=== PATIENT | male | born 1950 | race Caucasian/White ===

== ENCOUNTER 2024-06-09 07:02 | Day surgery (SDC) | payer OTHER ==
[2024-06-09] VITALS (9 sets, daily range): BP systolic 122–137; BP diastolic 63–77; PULSE 77–86; RESP 13–18; TEMP 97.2–98.1
[~2024-06-09 07:02] MED LIST: APIX5TAB PO; ATOR20TA65 PO; CHOL200013 PO; CLIN-141 PO; CLOP75TA32 PO; EVOL140S2 SQ; FOLI1 PO; HYDR25TA PO; LEVE500T19 PO; METO-408 PO; OMEP40CA21 PO; VENL150T3 PO
[2024-06-09 07:56] LABS: CREATININE 1.5 mg/dL (0.5-1.3); POTASSIUM 3.8 mmol/L (3.5-5.1)
[2024-06-09] MEDS: 0.9%NACL 1000ML 1,000 ML IV SCH (08:00)
[2024-06-09] MEDS ORDERED: IODIXANOL 320 MG/ML 100 ML VIAL ONE (11:21)
[2024-06-09] MEDS ORDERED: NITROGLYCERIN 50MG VIAL ONE (11:21)
[2024-06-09] MEDS ORDERED: HEParin-NS 1,000 UNIT/500 ML 1,000 ML IV ONE (11:21)
[2024-06-09] MEDS ORDERED: LIDOCAINE HCL 400MG/20ML VIAL ONE (11:21)
[2024-06-09] MEDS ORDERED: HEParin 10,000 UNIT/10ML (1,000 UNIT/ML) VIAL ONE (11:21)
[2024-06-09] MEDS ORDERED: HEParin-NS 1,000 UNIT/500 ML 500 ML IV ONE (12:38)
[2024-06-09] MEDS ORDERED: MIDAZOLAM HCL 1 MG/ML 2ML VIAL ONE ×2 (12:58→13:13)
[2024-06-09] MEDS ORDERED: FENTanyl CITRate PF 50 MCG/1 ML 2ML VIAL ONE ×2 (12:58→13:29)
[2024-06-09] MEDS ORDERED: cloPIDOgrel 300MG TAB ONE (13:31)
[2024-06-09] MEDS ORDERED: 0.9%NACL 1000ML 1,000 ML IV SCH (14:30)
--- NOTE | 2024-06-09 14:51 | PRN ---
Procedure:Peripheral Angiogram Procedure Note Procedure Note: Peripheral Angiogram Date of Service: 06/09/2024 Referring Physician: Dr. Quinn Procedures Performed: [Distal abdominal aortogram, right lower extremity peripheral angiogram, left common femoral artery angiogram ] Indications for Procedure: PAD, [place] category 5 symptoms (RLE) Nonhealing ulcer in the right foot Description of Procedure: [After informed consent was obtained the patient was prepped and draped in the usual sterile fashion a 6 Montserratian arterial sheath with a hemostatic valve was inserted into the left common femoral artery using a modified Salinger technique on the first pass front wall puncture. A 5 Montserratian Omni Flush catheter was then advanced over a soft angled Glidewire into the abdominal aorta and a lower abdominal aortogram with runoff was obtained. The findings are listed below. The Omni flush catheter was then advanced to the right common femoral artery and a right lower extremity arteriogram was obtained. The findings are listed below.] Findings: Lower abdominal aorta: patent Left common iliac artery: patent Left external iliac artery: patent Left internal iliac artery: patent Left common femoral artery: patent Right common iliac artery: patent Right external iliac artery: patent Right internal iliac artery: patent Right common femoral artery: patent Right profunda artery: patent Right superficial femoral artery: There is a stent in the mid and distal segment of the artery. There is diffuse 70% ISR seen within the stent. Right popliteal artery: 80% stenosis in the proximal segment of the artery Right anterior tibial artery: 100% stenosis (DEPLOYMENT ENGINEER = 150mm) in the proximal segment of the artery. The artery reconstitutes distally via collateral blood flow Right tibioperoneal artery: 70% stenosis in the mid segment of the artery Right peroneal artery: 70% stenosis in the proximal segment of the artery. 95% focal stenosis in the mid segment of the artery Right posterior tibial artery: 100% stenosis (DEPLOYMENT ENGINEER = 200mm) in the proximal segment of the artery. The artery reconstitutes distally via collateral blood flow Right pedal arch: Incomplete, with slow single-vessel runoff supplying the anterior and posterior segments of the pedal arch. Intervention: After reviewing the above-mentioned findings the decision was made to intervene on the right anterior tibial artery. The soft angled glidewire was inserted into the Omni flush catheter was advanced to the right popliteal artery. Then removed the Omni flush catheter and exchanged the short six Montserratian arterial sheath for a 65 cm six Montserratian destination arterial sheath, which was then placed in the mid right superficial femoral artery. We then administered heparin 75 units/kg and clopidogrel 300 mg x 1 dose. We then advanced a 0.014 whisper guidewire and 0.014 quick cross catheter into the proximal right anterior tibial artery and attempted to cross the DEPLOYMENT ENGINEER, but despite multiple whitney send a wire escalation technique that included (0.014 Fielder XT, 0.014 Confianza pro), we were unable to cross the DEPLOYMENT ENGINEER. The decision was made to address the stenosis in the right tibioperoneal and right peroneal arteries. The 0.014 quick cross catheter and 0.014 whisper guidewire were pullback and were advanced across the stenosis in the right tibioperoneal artery. We then exchanged the whisper guid ewire for a 0.014 Confianza pro and crossed the stenosis in the mid right peroneal artery. The wire was advanced into the distal segment of the artery. We then removed the quick cross catheter and performed balloon angioplasty (1.5 x 20 mm) in the mid right peroneal artery. We then performed balloon lithotripsy (shockwave 2.5 by 80 mm) and balloon angioplasty (chocolate 3.0 x 12 0 mm) in the right tibioperoneal artery, proximal and mid right peroneal arteries. We then performed balloon lithotripsy (shock wave 6.0 x 60 mm) in the mid and distal right superficial femoral artery and proximal right popliteal artery. We then performed or coated balloon angioplasty (Medtronic inpact 5.0 x 60 mm) in the right popliteal artery and (Medtronic inpact 6.0 x 200 mm) mid and distal right superficial femoral artery. The balloons were then removed and repeat angiography was performed, which revealed widely patent stents in the mid and distal right superficial femoral artery, a widely patent right popliteal artery, right tibioperoneal artery, and right peroneal artery, without dissection, or perforation, and brisk single-vessel runoff supplying the right foot/pedal arch. The 0.014 Confianza pro guidewire was then removed and the arteriotomy site in the left common femoral artery was successfully closed using a six Montserratian Angio-Seal device. The patient tolerated the procedure well without issue. Estimated Blood Loss: [30]mL Complications: [ None] Conclusion: 1. PAD, [place] category category five symptoms (left lower extremity), diffuse 70% ISR seen within the stent in the mid and distal right superficial femoral artery and 80% stenosis in the proximal right popliteal artery status post successful treatment with balloon lithotripsy and drug coated balloon angioplasty, 70% stenosis in the right tibioperoneal artery, 70% stenosis in the proximal right peroneal artery and then 5% stenosis in the mid right peroneal artery status post successful treatment with balloon lithotripsy and balloon angioplasty, resulting in widely patent arteries, without dissection, perforation, and brisk single-vessel runoff supplying the anterior and posterior segments of the right pedal arch. 2. Residual PAD, 100% stenosis in the proximal right anterior tibial artery and 100% stenosis in the proximal right posterior tibial artery. 3. Nonhealing ulcers in the right foot. 4. Paroxysmal atrial fibrillation, on anticoagulation 5. CAD s/p CABG Recommendations/Instructions: 1. Continue goal-directed medical therapy. 2. Continue clopidogrel 75 mg daily and restart Eliquis 5 mg BID tonight. 3. Groin precautions 4. 4 hours of bedrest 5. Please continue NS at 100 mL/hr x 3 hours 6. No driving x 48 hours. 7. No heavy lifting or strenuous activity x 2 weeks. 8. Okay to discharge home once the patient's bedrest is complete and his femoral access site remains soft to palpation and free of significant bleeding, bruising, or hematoma formation. 9. Please have the patient follow up with Cardiology, Dr. Chase Quinn, 1-2 weeks after discharge. 10. We will address the patient's residual PAD in the left lower extremity in August 2024 per the patient's request. CHASE QUINN MD Jun 09, 2024 14:51
== END 2024-06-09 17:50 | disposition home or self-care (01) ==
LOC: DAH 07:02
PROVIDERS: ATTEND Internal Medicine Cardiovascular Disease
DX: I70.201 Unspecified atherosclerosis of native arteries of extremities, right leg (principal); T82.856A Stenosis of peripheral vascular stent, initial encounter; L97.519 Non-pressure chronic ulcer of other part of right foot with unspecified severity; I48.91 Unspecified atrial fibrillation; I70.92 Chronic total occlusion of artery of the extremities; I10 Essential (primary) hypertension; K21.9 Gastro-esophageal reflux disease without esophagitis; I25.10 Atherosclerotic heart disease of native coronary artery without angina pectoris; E78.5 Hyperlipidemia, unspecified; Y82.8 Other medical devices associated with adverse incidents; Z95.1 Presence of aortocoronary bypass graft; Z96.649 Presence of unspecified artificial hip joint; Z79.01 Long term (current) use of anticoagulants; Z79.899 Other long term (current) drug therapy
CPT/HCPCS: 75630; 80048; 85347 ×2; 36415; C9772; C1887; C1725 ×3; C1894 ×2; C1769 ×5; C1760; C2623 ×2; C1893; C9764; J3010 ×2; J3490 ×2; J1644 ×3; J2250 ×2; Q9967; A4215; A4222; A4221; A4663; A4216; A4606; A4223 ×3; 75716; 96360; 96361; 99156; 99157

== ENCOUNTER 2024-09-25 05:41 | Day surgery (SDC) | payer OTHER ==
[2024-09-23 09:17] VITALS: BP 146/75; PULSE 86; RESP 18; TEMP 97.2
[2024-09-23 09:22] LABS: IMMATURE GRANULOCYTE ABSOLUTE 0.05 K/uL (0-1); NUCLEATED RED BLOOD CELLS 0.0 % (0.0-0.19); PLATELET COUNT (AUTO) 208 K/uL (130-400); RED BLOOD CELL COUNT(AUTO) 3.88 MIL/uL (4.50-6.20); RED CELL DISTRIBUTION WIDTH 14.6 % (11.0-15.5); WHITE BLOOD COUNT (AUTO) 9.4 K/uL (4.8-10.8)
[2024-09-23 09:26] LABS: APPEARANCE,URINE CLEAR (CLEAR); GLUCOSE, URINE (UA) NEGATIVE (NEGATIVE); LEUKOCYTE ESTERASE ,URINE NEGATIVE Leu/uL (NEGATIVE); NITRATE,URINE NEGATIVE (NEGATIVE); OCCULT BLOOD,URINE NEGATIVE (NEGATIVE)
--- NOTE | 2024-09-23 09:26 | EKG ---
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
[2024-09-23 09:29] LABS: CREATININE 1.2 mg/dL (0.5-1.3); GLOMERULAR FILTR. RATE CALC 63.0 mL/min (>90); GLUCOSE,RANDOM 139.0 mg/dL (70-105); SODIUM SERUM 138.0 mmol/L (136-145); UREA NITROGEN, BLOOD 23.0 mg/dL (7-18)
[2024-09-23 09:31] LABS: INR 1.03 (0.85-1.15)
[2024-09-23 09:51] LABS: ADD UA MICROSCOPIC YES
--- NOTE | 2024-09-23 10:20 | HMCIMG ---
EXAM: CR Chest, 1 View. CLINICAL HISTORY: PREOP COMPARISON: None provided. FINDINGS: LUNGS: There is no mass, infiltrate, or acute pulmonary abnormality. PLEURAL SPACES: No evidence of pleural effusion or pneumothorax. MEDIASTINUM: Prior sternotomy. The cardiomediastinal silhouette is within normal limits. BONES: No acute osseous abnormality. IMPRESSION: No acute cardiopulmonary pathology is evident. /[place]
[~2024-09-25] VITALS: Ht 182.9 cm; Wt 112.9 kg
[2024-09-25] VITALS (11 sets, daily range): BP systolic 95–131; BP diastolic 62–80; PULSE 69–93; RESP 10–17; TEMP 97.1–98
[~2024-09-25 05:41] MED LIST changes: -CHOL200013 PO; -CLIN-141 PO; +DOXY100C5 PO; -HYDR25TA PO; -OMEP40CA21 PO; +ROSU40TA88 PO; +SPIR25TA6 PO
[2024-09-25] MEDS: 0.9%NACL 1000ML 1,000 ML IV SCH (06:22)
[2024-09-25] MEDS ORDERED: LIDOCAINE HCL 400MG/20ML VIAL ONE (07:10)
[2024-09-25] MEDS ORDERED: HEParin-NS 1,000 UNIT/500 ML 1,000 ML IV ONE (07:10)
[2024-09-25] MEDS ORDERED: IODIXANOL 320 MG/ML 100 ML VIAL ONE (07:11)
[2024-09-25] MEDS ORDERED: MIDAZOLAM HCL 1 MG/ML 2ML VIAL ONE (07:31)
[2024-09-25] MEDS ORDERED: NITROGLYCERIN 50MG VIAL ONE ×2 (07:33→08:51)
[2024-09-25] MEDS ORDERED: HEParin-NS 1,000 UNIT/500 ML 500 ML IV ONE (08:53)
[2024-09-25] MEDS ORDERED: 0.9%NACL 1000ML 1,000 ML IV SCH (10:00)
[2024-09-25] MEDS ORDERED: GLUCAGON 1MG KIT 1 MG ML IM PRN (10:00)
[2024-09-25] MEDS ORDERED: DEXTROSE 50%-WATER 50 ML DISP.SYRIN IV PRN (10:00)
--- NOTE | 2024-09-25 10:13 | PRN ---
Procedure:Peripheral Angiogram Procedure Note Procedure Note: Peripheral Angiogram Date/Time of Service: 09/25/2024 Referring Physician: Dr. Quinn Procedures Performed: Lower abdominal aortogram, peripheral angiogram with lower extremity arterial runoff, peripheral angiogram via the 0.014 quick cross catheter, orbital atherectomy, balloon lithotripsy, and drug coated balloon angioplasty of the distal left superficial femoral artery and left popliteal art cm Indications for Procedure: PAD, [place] category five symptoms (left lower extremity) Nonhealing ulcer in the left foot PAD status post peripheral intervention of the arteries in the right lower extremity done on 06/09/2024 Persistent atrial fibrillation, on anticoagulation Description of Procedure: [After informed consent was obtained the patient was prepped and draped in the usual sterile fashion a 6 Nigerien arterial sheath with a hemostatic valve was inserted into the right common femoral artery using a modified Salinger technique on the first pass front wall puncture. A 5 Nigerien Omni Flush catheter was then advanced over a soft angled Glidewire into the abdominal aorta and a lower abdominal aortogram with runoff was obtained. The findings are listed below. The Omni flush catheter was advanced to the left common femoral artery and a left lower extremity arteriogram was obtained. The findings are listed below.] Findings: Lower Abdominal aorta: patent Right common iliac artery: patent Right external iliac artery: patent Right internal iliac artery: patent Right common femoral artery: patent Right profunda artery: patent Left common iliac artery: patent Left external iliac artery: patent Left internal iliac artery: patent Left common femoral artery: patent Left profunda artery: patent Left superficial femoral artery: Diffuse 80-90% stenosis in the distal segment of the artery Left popliteal artery: Diffuse 90% stenosis in the proximal and mid segments of the artery Left anterior tibial artery: 100% stenosis (FIREMAN HELPER = 260 mm) in the proximal segment of the artery. The artery does not reconstitute distally Left tibioperoneal artery: Diffuse 80% stenosis Left peroneal artery: 80% stenosis in the proximal segment of the artery and focal 90% stenosis in the mid segment of the artery Left posterior tibial artery: 100% stenosis (FIREMAN HELPER = 240 mm) in the proximal segment of the artery. The artery reconstitutes distally via collateral blood flow Left pedal arch: Incomplete, with slow single-vessel runoff supplying the anterior and posterior segments of the left pedal arch. Intervention: After reviewing the above-mentioned findings the decision was made to intervene on the left superficial femoral artery in the left popliteal artery. The soft angled Glidewire was inserted into the Omni flush catheter and was advanced to the mid left superficial femoral artery. We then removed the Omni flush catheter and exchanged the short six Nigerien arterial sheath for a 65 cm six Nigerien destination arterial sheath, which was then placed in the mid left superficial femoral artery. We then administered heparin 75 units/kg and clopidogrel 300 mg x 1 dose. We then advanced a 0.014 whisper guidewire and 0.014 quick cross catheter across the areas stenosis and into the distal left peroneal artery. We then removed the guidewire and injected contrast into the quick cross catheter to ensure that we were in the true lumen of the left peroneal artery. Once this was confirmed we advanced a Viper wire through the quick cross catheter and into the distal left peroneal artery. We then removed the quick cross catheter and performed multiple passes of orbital atherectomy (CSI 1.5 solid) at different speed's (63822, 36561, 941215 krpm) in the distal left superficial femoral artery, proximal, mid, and distal left popliteal artery. We then performed balloon lithotripsy (shockwave 6.0 x 80 mm) and drug coated balloon angioplasty (Edverttronic inpact 5.0 x 250 mm) in the distal left superficial femoral artery, proximal colon, and distal left popliteal artery. The balloons were then removed and repeat angiography was performed, which revealed widely patent arteries, without dissection, perforation, and brisk single-vessel runoff supplying the left foot/pedal arch. The Viper wire and 65 cm six Nigerien destination arterial sheath were then removed and the arteriotomy site in the right common femoral artery was successfully closed using a six Nigerien Angio-Seal device. Estimated Blood Loss: [40]mL Complications: [ None] Conclusion: 1. PAD, [place] category five symptoms (left lower extremity), diffuse 80-90% stenosis in the distal left superficial femoral artery and diffuse 90% stenosis in the proximal, and mid left popliteal artery status post successful treatment with orbital atherectomy (CSI 1.5 mm solid), balloon lithotripsy, and drug coated balloon angioplasty, resulting in widely patent arteries, without disse ction, perforation, and brisk single-vessel runoff supplying the left foot/pedal arch 2. Residual PAD, 100% stenosis in the proximal left anterior tibial artery, 80% stenosis in the left tibioperoneal artery, 80% stenosis in the proximal left peroneal artery, 90% stenosis in the mid left peroneal artery, and 100% stenosis in the left posterior tibial artery. 3. Nonhealing ulcer in the left foot 4. PAD status post peripheral intervention of the arteries in the right lower extremity done on 06/09/2024 5. Persistent atrial fibrillation, on anticoagulation Recommendations/Instructions: 1. Continue goal-directed medical therapy. 2. Continue clopidogrel 75 mg daily and Eliquis 5 mg BID. 3. Groin precautions. 4. 4 hours of bedrest. 5. Start NS at 100ml/hr x 3 hours. 6. Okay to DC once bed rest is complete in the right groin is soft, free of bruising, bleeding, and or hematoma formation. 7. We will bring the patient back within the next two weeks to address the residual PAD in the left-sided infrapopliteal arteries 8. No driving for the next 48 hours. 9. No heavy lifting or strenuous exercise for the next two weeks. CHASE QUINN MD Sep 25, 2024 10:13
--- NOTE | 2024-09-25 13:56 | NUR ---
Full and complete discharge instructions given to Patient and Family both verbally and in writing. Explained Angiogram procedure precautions and follow up. Right groin site clean dry and intact. No evidence of bleeding, bruising or hematoma. Pedal pulses intact to BLE's. All questions answered. PIV removed with catheter tip intact. at bedside appearing supportive. W/C to POV with to home.
== END 2024-09-25 13:50 | disposition home or self-care (01) ==
LOC: DAH 05:41
PROVIDERS: ATTEND Internal Medicine Cardiovascular Disease
DX: I70.202 Unspecified atherosclerosis of native arteries of extremities, left leg (principal); L97.529 Non-pressure chronic ulcer of other part of left foot with unspecified severity; I70.92 Chronic total occlusion of artery of the extremities; I25.10 Atherosclerotic heart disease of native coronary artery without angina pectoris; K21.9 Gastro-esophageal reflux disease without esophagitis; I48.91 Unspecified atrial fibrillation; I10 Essential (primary) hypertension; E78.5 Hyperlipidemia, unspecified; I48.19 Other persistent atrial fibrillation; Z95.1 Presence of aortocoronary bypass graft; Z79.899 Other long term (current) drug therapy
CPT/HCPCS: 80048; 83880; 85025; 85610; 85730; 81001; 36415; 71045; 93005; 75625; 75716; 99156; 99157 ×5; 85347; C9766; C1887; C1725; C1894 ×2; C1769 ×3; C1760; C1893; C1724; C2623; J3010; J3490 ×4; J1644 ×4; J2250; Q9967; A4215; A4335; A4222; A4221; A4663; A4216; A4606; A4223 ×3; A4554